=== PATIENT | male | born 1975 | race African-American/Black ===

== ENCOUNTER 2018-07-03 13:46 | Emergency (ER) | payer SELFPAY ==
[~2018-07-03] VITALS: Ht 193 cm; Wt 110.0 kg
[2018-07-03 13:52] VITALS: BP 170/90
[2018-07-03] MEDS ORDERED: SODIUM CHLORIDE 0.9% 1,000 ML IV ONE (14:20)
[2018-07-03 17:42] LABS: CLARITY URINE CLEAR (CLEAR); COLOR URINE YELLOW (YELLOW); KETONES URINE NEGATIVE (NEGATIVE); LEUKOCYTE ESTERASE URINE NEGATIVE (NEGATIVE); NITRITE URINE NEGATIVE (NEGATIVE); OCCULT BLOOD URINE NEGATIVE (NEGATIVE); PROTEIN URINE 1+ (NEGATIVE); SPECIFIC GRAVITY URINE 1.023 (1.005-1.030); UROBILINOGEN URINE 0.2 E.U./dL (0.2-1.0)
[2018-07-03 18:24] LABS: *AMPHETAMINES SCREEN URINE NEGATIVE (NEGATIVE); *BARBITURATES SCREEN URINE NEGATIVE (NEGATIVE)
[2018-07-03 18:25] LABS: *BENZODIAZEPINES SCREEN URINE NEGATIVE (NEGATIVE); *COCAINE SCREEN URINE NEGATIVE (NEGATIVE); METHADONE URINE SCREEN NEGATIVE (NEGATIVE)
[2018-07-03 18:26] LABS: CANNABINOID URINE SCREEN PRESUMTIVE POSITIVE (NEGATIVE); OPIATES URINE SCREEN NEGATIVE (NEGATIVE); PHENCYCLIDINE URINE SCREEN PRESUMTIVE POSITIVE (NEGATIVE)
== END 2018-07-03 14:44 | disposition left against medical advice (07) ==
LOC: ER 13:46
DX: F16.10 Hallucinogen abuse, uncomplicated (principal); R40.4 Transient alteration of awareness; I10 Essential (primary) hypertension; E11.9 Type 2 diabetes mellitus without complications; E78.5 Hyperlipidemia, unspecified
CPT/HCPCS: 71045; 80305; 81003; 99285; J7030

== ENCOUNTER 2021-08-23 17:50 | Emergency (ER) | payer MEDICAID ==
[~2021-08-23] VITALS: Ht 188 cm; Wt 111.0 kg
[2021-08-23] MEDS ORDERED: HYDROCODONE/ACETAMINOPHEN 5/325MG TABLET PO STA (20:11)
[2021-08-23] MEDS ORDERED: NAPR-1164 MT (20:15)
[2021-08-23 22:15] VITALS: BP 130/76
== END 2021-08-23 22:36 | disposition home or self-care (01) ==
LOC: ER 17:50
DX: M25.561 Pain in right knee (principal); Z87.828 Personal history of other (healed) physical injury and trauma; Z98.890 Other specified postprocedural states
CPT/HCPCS: 99283